=== PATIENT | female | born 1950 | race Caucasian/White ===

== ENCOUNTER → 2016-06-26 | Outpatient (CLI) | payer OTHER ==
[2016-06-26 08:32] LABS: CREATININE 0.8 mg/dL (0.6-1.0)
== END ==
LOC: LABMALL 07:56 → CAT 13:11 → LAB 13:13
PROVIDERS: Family Medicine
DX: J40 Bronchitis, not specified as acute or chronic (principal)

== ENCOUNTER → 2017-01-14 | Outpatient (CLI) | payer OTHER | LOC: CAT 10:44 | DX: Z13.6 Encounter for screening for cardiovascular disorders (principal) ==

== ENCOUNTER → 2017-12-22 | Outpatient (CLI) | payer OTHER | LOC: RAD 12:26 | DX: Z01.818 Encounter for other preprocedural examination (principal) ==

== ENCOUNTER → 2019-04-17 | Outpatient (CLI) | payer OTHER | LOC: SJCVC 14:53 | DX: I25.10 Atherosclerotic heart disease of native coronary artery without angina pectoris (principal); R94.31 Abnormal electrocardiogram [ECG] [EKG]; I10 Essential (primary) hypertension; R93.1 Abnormal findings on diagnostic imaging of heart and coronary circulation; E78.00 Pure hypercholesterolemia, unspecified; E78.5 Hyperlipidemia, unspecified; Z79.82 Long term (current) use of aspirin; Z79.84 Long term (current) use of oral hypoglycemic drugs; Z79.899 Other long term (current) drug therapy; Z82.49 Family history of ischemic heart disease and other diseases of the circulatory system ==

== ENCOUNTER → 2019-05-05 | Outpatient (CLI) | payer OTHER | LOC: CAT 12:44 | DX: R19.09 Other intra-abdominal and pelvic swelling, mass and lump (principal) ==

== ENCOUNTER → 2019-07-04 | Outpatient (CLI) | payer OTHER | LOC: ULTRA 05-23 12:52 | DX: N83.201 Unspecified ovarian cyst, right side (principal) ==

== ENCOUNTER 2019-12-07 20:58 | Emergency (ER) | payer OTHER ==
[~2019-12-07] VITALS: Ht 162.6 cm; Wt 93.0 kg
[2019-12-07 23:13] LABS: ABSOLUTE NEUTROPHILS 3.8 thou/uL (1.4-8.2); BASOPHILS 0.9 % (0.0-2.0); EOSINOPHILS 0.5 % (0.0-3.0); HEMATOCRIT 36.8 % (37.0-47.0); HEMOGLOBIN 12.3 gm/dL (12.0-15.0); LYMPHOCYTES 38.9 % (24.0-44.0); MCH 30.8 pg (26.0-34.0); MCHC 33.6 g/dL (28.0-37.0); MCV 91.6 fL (80.0-100.0); MONOCYTES 9.3 % (1.0-8.0); PLATELET COUNT 259 thou/uL (150-400); POLYS 50.4 % (36.0-66.0); RBC 4.01 mil/uL (4.20-5.00); RDW 13.2 % (10.5-14.5); WBC 7.5 thou/uL (4.0-11.0)
[2019-12-07 23:14] LABS: CALCIUM 8.9 mg/dL (8.5-10.1); CREATININE 1.2 mg/dL (0.6-1.0)
[2019-12-08] MEDS ORDERED: PROTONIX40 M2 PO (00:34)
[2019-12-08] MEDS ORDERED: VITAMIN D21250 MC1 PO (00:34)
[2019-12-08 00:35] VITALS: BP 133/85
== END 2019-12-08 00:35 | disposition home or self-care (01) ==
LOC: ER 20:58
PROVIDERS: Emergency Medicine
DX: M62.838 Other muscle spasm (principal); M79.661 Pain in right lower leg; I10 Essential (primary) hypertension; K21.9 Gastro-esophageal reflux disease without esophagitis; Z96.652 Presence of left artificial knee joint; Z90.711 Acquired absence of uterus with remaining cervical stump; Z90.49 Acquired absence of other specified parts of digestive tract; Z88.1 Allergy status to other antibiotic agents; Z88.0 Allergy status to penicillin

== ENCOUNTER → 2019-12-07 | Outpatient (CLI) | payer OTHER ==
[~2019-12-07] MED LIST: PROTONIX40 M2 PO; VITAMIN D21250 MC1 PO
== END ==
LOC: ULTRA 10:24
PROVIDERS: ATTEND Family Medicine
DX: E04.2 Nontoxic multinodular goiter (principal)

== ENCOUNTER → 2019-12-21 | Outpatient (CLI) | payer OTHER ==
[~2019-12-21] MED LIST changes: +ASA81BEC PO; +ASMANEX110 MCG INH; +ATIVAN1 M1 PO; +IBU600 MG PO; +LIPITOR 40 MG T40 M1 PO; +REMERON 30 MG T30 M1 PO; +SERTRALINE HCL100 MG PO; +TOPROL XL50 MG PO; +ZETIA10 MG PO
== END ==
LOC: SJCVCIMAG 08:11
PROVIDERS: ATTEND Internal Medicine Cardiovascular Disease
DX: I25.10 Atherosclerotic heart disease of native coronary artery without angina pectoris (principal); I10 Essential (primary) hypertension; R93.1 Abnormal findings on diagnostic imaging of heart and coronary circulation; Z79.899 Other long term (current) drug therapy

== ENCOUNTER → 2019-12-22 | Outpatient (CLI) | payer OTHER ==
[~2019-12-22] VITALS: Ht 165.1 cm; Wt 93.9 kg
[2019-12-22 07:12] VITALS: BP 159/80
[2019-12-22 07:32] LABS: HEMATOCRIT 39.1 % (37.0-47.0); HEMOGLOBIN 12.9 gm/dL (12.0-15.0); MCH 30.6 pg (26.0-34.0); MCHC 33.1 g/dL (28.0-37.0); MCV 92.4 fL (80.0-100.0); RBC 4.23 mil/uL (4.20-5.00); RDW 13.1 % (10.5-14.5); WBC 6.1 thou/uL (4.0-11.0)
[2019-12-22 07:40] LABS: CALCIUM 9.5 mg/dL (8.5-10.1); CREATININE 0.9 mg/dL (0.6-1.0); POTASSIUM 3.6 mmol/L (3.5-5.1)
--- NOTE | 2019-12-22 08:04 | EKG ---
[facility] [place] [address] ELECTROCARDIOGRAM REPORT Name: CHANDLER LEÓN Room #: [facility]#: [id number] Admission: 12/22/19 Attend Phys: Stephan Boyce MD, Discharge: Date of : 52 Report #: [id number] THIS REPORT FOR: cc: Ryan Santiago MD, Neal A. MD Lundgren,Seun Taylor MD [facility] ~ THIS REPORT FOR: //name// [facility] Test Date: 2019-12-22 Test Time: 07:49:53 Pat Name: CHANDLER LEÓN Department: Room: Gender: F It Help Desk Technician: ASIF : 1950 Requested By: Stephan Boyce Order Number: [id number] MD: Seun Downing Measurements Intervals [place] Rate: 70 P: -1 [place]: 157 QRS: -36 QRSD: 100 T: 23 QT: 432 QTc: 467 Interpretive Statements Sinus rhythm Leftward axis Compared to ECG 08/06/2005 12:28:11 ST (T wave) deviation no longer present Electronically Signed On 12-22-2019 8:04:24 CDT by Seun Downing [email or web address] <ELECTRONICALLY SIGNED> By: Seun Downing MD, FAC 12/22/19 0804 0749 Seun Downing MD, FAC /EPI
--- NOTE | 2019-12-22 16:58 | CATHLAB ---
[facility] [place] [address] INVASIVE PROCEDURE REPORT Name: CHANDLER LEÓN Room #: [facility] Sarah.#: [id number] Admission: 12/22/19 Attend Phys: Stephan Boyce MD, Discharge: Date of : 52 Report #: [id number] THIS REPORT FOR: cc: Ryan Santiago MD, Neal A. MD Mancuso, Gerald M. MD [facility] ~ APPROVED REPORT Study performed: 12/22/2019 07:27:54 Patient Details Patient Status: Out-Patient Room #: The patient is a 69 year-old female Event Personnel Stephan Boyce Heavy Mobile Equipment Operator, Nay Ryan RTR Monitor, Maira Norris RT(R)() Gilbert Hernández Jessica RN RN, Sarahi Antony RN flight control specialist Performed Art Access - R femoral artery* Left Heart Cath w/or w/o Coronaries [id number] [facility] [address] Initial Mod Sed Same Phys/QHP Gr5y 131596 66942 Mod Sed Same Phys/QHP Ea [id number] Hemostasis w/ Mynx Aortogram Abdominal Peripheral Angio 518074 Procedure Narrative The Right Groin^ was infiltrated with 1% Lidocaine subcutaneous anesthesia. A PINNACLE 6FR Sheath #[id number] sheath was inserted into the RFA^. Coronary angiography was performed using coronary diagnostic catheters. The right coronary system was accessed and visualized with a JR4 catheter. The left coronary system was accessed and visualized with a JL4 catheter. The left ventricle was accessed and visualized with a PIGTAIL catheter. Left ventriculogram was performed in 30 degree projection. An aortogram of the abdominal aorta was performed. Pre-demployment femoral angiogram was performed . Closure device was deployed with a Fr MYNXGRIP 6/7F #[id number]. The patient tolerated the procedure well and there were no complications associated with the procedure. There was no hematoma. Intraoperative Conscious Sedation Sedation start time: 8:49 Case end Time: 9:19 Fentanyl 50 mcg Versed [address] [address] INVASIVE PROCEDURE REPORT Name: CHANDLER LEÓN Room #: [facility]#: [id number] Admission: 12/22/19 Attend Phys: Stephan Boyce, Discharge: Date of : 52 Report #: [id number] Fluoro Time: 2.70 minutes Dose: DAP 5674.10 cGycm2 731 mGy Contrast Type and Amount: Omnipaque 90 ml Hemodynamics The aortic pressure is 180/76 mmHg with a mean of 136 mmHg. The left ventricular pressure is 198/6 mmHg with a mean of mmHg. The left ventricular end diastolic pressure is 30 mmHg. Conclusion #1. Normal left ventricular size and systolic function lower limits of normal EF 50 to 55% #2 abdominal aorta shows wide patency with mild irregularity no aneurysm formation. #3 left main mildly diseased and calcified giving rise to LAD and circumflex. #4 LAD is proximal calcification mid vessel calcification eccentric mid vessel lesion of 50 to 60% as this extends around the apex otherwise preserved. Does not appear to be flow-limiting. #5 left circumflex artery is a dominant vessel it is widely patent. #6 small nondominant right coronary artery Recommendations and plan: Continue aggressive risk factor modification. No indication for coronary intervention. Will follow this LAD lesion carefully. <ELECTRONICALLY SIGNED> By: Stephan Boyce MD, FACC 12/22/191657 57 57 Stephan Boyce MD, FACC /INF
== END ==
LOC: CATH 06:24
PROVIDERS: ATTEND Internal Medicine Cardiovascular Disease
DX: R07.9 Chest pain, unspecified (principal); I25.10 Atherosclerotic heart disease of native coronary artery without angina pectoris; I10 Essential (primary) hypertension; K21.9 Gastro-esophageal reflux disease without esophagitis; J45.909 Unspecified asthma, uncomplicated; Z90.49 Acquired absence of other specified parts of digestive tract; Z91.040 Latex allergy status; Z79.899 Other long term (current) drug therapy; Z82.49 Family history of ischemic heart disease and other diseases of the circulatory system

== ENCOUNTER → 2020-09-16 | Outpatient (CLI) | payer OTHER ==
[~2020-09-16] VITALS: Ht 165.1 cm; Wt 108.9 kg
[~2020-09-16] MED LIST changes: +DOMPERIDONE PO; +HYDROCODON-ACE1 EAC7 PO; +MELOXICAM15 MG PO
[2020-09-16 10:17] VITALS: BP 152/88
--- NOTE | 2020-09-16 10:55 | NUR ---
Pain Clinic Assessment: 1. History of Osteoarthritis: Not Applicable History of Rheumatoid Arthritis: Not Applicable 2. Height: 5 ft. 5 in. 165.1 cm. Weight: 240.0 lb. oz. 108.864 kg. Patient's BMI: 39.9 3. Vital Signs: BP: 152/88 Pulse: 84 Resp: 20 Temp: 02 Sat: 97 ECG Mon: 4. Pain Intensity: 3 5. Fall Risk: Dizziness: Y Needs help standing or walking: N Fallen in the last 3 months: N Fall risk comments: 6. Patient on Blood Thinner: None 7. History of Hypertension: Y 8. Opioid Therapy greater than 6 weeks: Opiate Contract Signed: 9. Risk Assessment Tool Provided: 1 LOW RISK 10. Functional Assessment Tool: 11. Recreational Drug Use: Never Drug Type: Tobacco Use: Never Smoker Tobacco Type: Amount or Packs/day: How Many Years: Alcohol Use: No Frequency: Quant:
== END ==
LOC: PAIN 06:54
PROVIDERS: ATTEND Anesthesiology Pain Medicine
DX: M47.817 Spondylosis without myelopathy or radiculopathy, lumbosacral region (principal); I10 Essential (primary) hypertension; Z90.49 Acquired absence of other specified parts of digestive tract; Z90.710 Acquired absence of both cervix and uterus; Z88.1 Allergy status to other antibiotic agents; Z88.8 Allergy status to other drugs, medicaments and biological substances; Z88.0 Allergy status to penicillin

== ENCOUNTER → 2020-11-14 | Outpatient (CLI) | payer OTHER | LOC: SJCVC 11:04 | PROVIDERS: ATTEND Internal Medicine Cardiovascular Disease | DX: I25.10 Atherosclerotic heart disease of native coronary artery without angina pectoris (principal); I10 Essential (primary) hypertension; E78.00 Pure hypercholesterolemia, unspecified; R93.1 Abnormal findings on diagnostic imaging of heart and coronary circulation; Z79.899 Other long term (current) drug therapy; Z88.1 Allergy status to other antibiotic agents ==

== ENCOUNTER → 2020-12-05 | Outpatient (CLI) | payer OTHER | LOC: SJCVCIMAG 08:52 | PROVIDERS: ATTEND Internal Medicine Cardiovascular Disease | DX: I25.10 Atherosclerotic heart disease of native coronary artery without angina pectoris (principal) ==